=== PATIENT | male | born 1935 | race Caucasian/White ===

== ENCOUNTER 2016-11-10 12:03 | Inpatient (IN) | payer MEDICARE, BC ==
[~2016-11-10] VITALS: Ht 180.3 cm; Wt 86.2 kg
--- NOTE | 2016-11-12 09:16 | CO ---
ADMIT: 11/10/2016 RM/LOC: 423 [facility] MR#: [id number] [address] [address] ADRIANA MCCORMICK [address] [place] [address] Consultation SEX: M AGE: 81 : 1935 DATE OF CONSULTATION: 11/11/2016 ATTENDING PHYSICIAN: Rashid Hameed CONSULTING PHYSICIAN: Alonzo Gage MD REASON FOR CONSULTATION: Anemia. HISTORY OF PRESENT ILLNESS: Adriana is a very pleasant 81-year-old male, who has been admitted to the hospital for an episode of shortness of breath. He first noticed these symptoms approximately 2 months ago but has been getting progressively worse. It has gotten to the point where he cannot take 1 step without feeling short of breath. Because of this, he was then admitted through the Emergency Department and a full workup revealed hemoglobin of 7.7. He has now received 2 blood transfusions. Today, the patient denies any pain, shortness of breath, lightheadedness, weakness, diarrhea, constipation, dark or bloody stools, or nausea or vomiting. His last bowel movement was this morning and apparently was normal according to him. Fecal occult blood testing done in the ER revealed negative test at that time. He does take warfarin; however, he denies taking any other blood thinning medications. PAST MEDICAL HISTORY: Significant for atrial fibrillation and hypertension. PAST SURGICAL HISTORY: 1. Last colonoscopy was performed by Dr. Hameed approximately 5 years ago, he does not recall any pertinent findings from that test. He has not had any prior EGDs. 2. Mitral valve replacement. 3. Knee replacement. ALLERGIES: TO ASPIRIN, PENICILLIN, LEVAQUIN, BIAXIN, ZYLOPRIM, AND SALICYLATES. MEDICATIONS: Well documented in chart. He is on warfarin. FAMILY HISTORY: Noncontributory. SOCIAL HISTORY: The patient denies any alcohol, tobacco, or illicit drug use. REVIEW OF SYSTEMS: CONSTITUTIONAL: The patient denies any fever, chills, or night sweats. The rest of the comprehensive 10-point review of systems was performed and all other systems are negative. PHYSICAL EXAMINATION: GENERAL: The patient is in no acute distress. He is alert and oriented. HEENT: Head is normocephalic and atraumatic. EOMS are intact. Conjunctivae free of icterus, erythema, pallor or pallor. Pinnae free of deformities. Nose, midline. No tracheal deviation. NECK: Supple. ADMIT: 11/10/2016 RM/LOC: 423 [facility] MR#: [id number] [address] [address] ADRIANA MCCORMICK [address] [place] [address] Consultation SEX: M AGE: 81 : 1935 SKIN: Negative for jaundice, clubbing, edema, pallor, cyanosis. LUNGS: Clear to auscultation bilaterally. Normal respiratory effort. HEART: Distal pulses intact. Regular rate and rhythm. No murmurs noted. ABDOMEN: Soft, nondistended, and nontender. NEURO: Grossly intact. LABORATORY DATA: Hemoglobin is 8.9 today. ASSESSMENT: Anemia. PLAN: The plan is to have the patient undergo upper and lower endoscopy performed by Dr. Gage tomorrow. I discussed the risks, alternatives, benefits, and complications of the procedures with the patient and his , who was present during my whole assessment. They are in agreement of this plan, had all their questions answered, and would like to proceed. We will get him prepped today and put on the schedule for tomorrow. We will go from there. Thank for the consultation of this patient. DILCIA Hernández / Alonzo Gage MD / nicole JOB #: [id number] CC: Rashid Hameed, Attending Physician Rashid Hameed, Family Physician
[2016-11-14] MEDS ORDERED: VASOTEC DPS5 MG PO (18:03)
[2016-11-14] MEDS ORDERED: FLECAINIDE ACE150 MG PO (18:03)
[2016-11-14] MEDS ORDERED: ZOCOR DPS20 MG PO (18:03)
[2016-11-14] MEDS ORDERED: COUMADIN5 MG PO (18:04)
[2016-11-14] MEDS ORDERED: MONTELUKAST SOD10 MG PO (18:04)
[2016-11-14] MEDS ORDERED: COUMADIN2.5 MG PO (18:04)
[2016-11-14] MEDS ORDERED: PROTONIX40 MG PO (18:04)
[2016-11-14] MEDS ORDERED: CITRUCEL500 MG PO (18:05)
[2016-11-14] MEDS ORDERED: ZYRTEC DPS10 MG PO (18:05)
[2016-11-14] MEDS ORDERED: ATROVENT NASAL30 ML NS (18:05)
[2016-11-14] MEDS ORDERED: CARVEDILOL25 MG PO (18:05)
[2016-11-14] MEDS ORDERED: NITROSTAT0.4 MG SL (18:06)
[2016-11-14] MEDS ORDERED: SURFAK DPS240 MG PO (18:06)
[2016-11-14] MEDS ORDERED: TYLENOL DPS325 MG PO (18:06)
[2016-11-14] MEDS ORDERED: MAALOX DPS30 ML PO (18:06)
--- NOTE | 2016-11-15 08:16 | ER ---
ADMIT: 11/10/2016 RM/LOC: 423 [facility] MR#: [id number] 2620 [facility] [address] [place] [phone] ADRIANA MCCORMICK [address] [place] [address] Emergency Room Report SEX: M AGE: 81 : 1935 DATE: 11/10/2016 HISTORY OF PRESENT ILLNESS: The patient is a patient of Dr. Hameed. He is in the emergency room with shortness of breath for 7 seven days. He did arrive to the ER. He was very pale, almost had a syncopal episode. His associated symptoms are lightheadedness. He says he gets more short of breath with exertion that he used to. A couple of months ago, he had an increase in his flecainide because he was in AFib. He has been doing well until now. PAST MEDICAL HISTORY: Atrial fibrillation, hypertension, hyperlipidemia. MEDICATIONS: Include: 1. Flecainide. 2. Coreg. 3. Enalapril. 4. Ipratropium. 5. Zyrtec. 6. Singulair. 7. Coumadin. 8. Simvastatin. PHYSICAL EXAMINATION: VITAL SIGNS: Blood pressure 106/71, 99% O2 sats, 79 pulse, respirations 18, temp 95.4. GENERAL: Well-nourished and well-developed male, alert, oriented, very, very pale, very pleasant. HEENT: Normal inspection. NECK: Supple. RESPIRATIONS: No distress. CVS: Regular in rate and rhythm. ABDOMEN: Obese, nontender. SKIN: Pale. EXTREMITIES: Non-edematous. NEUROLOGIC: Oriented x4. Mood and affect are appropriate. LABORATORY AND X-RAY DATA: His workup includes CBC with a normal white count of 8.4, hemoglobin 7.7, hematocrit is 25. Hemoccult was negative. The creatinine was 2.0 with a glucose of 104, BUN is 29, calcium 7.9, CRP 0.46 with Rh O positive. INR 1.96 and subtherapeutic. PT 20.8. BNP still pending. EKG, junctional rhythm with left bundle-branch block at 53 beats per minute. His x-ray shows cardiac size within normal limits. CHF is identified. Mild linear bibasilar atelectasis. Dr. Hameed was contacted at 1550 hours. He has given orders for admission. ADMIT: 11/10/2016 RM/LOC: 423 [facility] MR#: [id number] [address] [address] ADRIANA MCCORMICK [address] [place] [address] Emergency Room Report SEX: M AGE: 81 : 1935 He is going to include D-dimer and chest CT. CLINICAL IMPRESSION: 1. Subtherapeutic anticoagulation. 2. Congestive heart failure. 3. Near syncopal episode. 4. Anemia. 5. Chronic atrial fibrillation. The patient awaiting room placement. He was given a bag of fluids and he did extremely well, getting his blood pressure back and his color back before we discovered that he showed CHF in chest x-ray. DILCIA Masters / Tera Diaz MD / trumanl JOB #: [id number] CC: Rashid Hameed DO, Attending Physician Rashid Hameed DO, Family Physician
--- NOTE | 2016-11-17 08:28 | HP ---
ADMIT: 11/10/2016 RM/LOC: 423 [facility] MR#: [id number] [address] [facility] [address] [place] [phone] ADRIANA MCCORMICK [address] [place] [address] History and Physical SEX: M AGE: 81 : 1935 DATE OF SERVICE: 11/10/2016 REASON FOR HOSPITALIZATION: Dyspnea. HISTORY: An 81-year-old male patient with a history of mitral valve prosthesis 10 years ago this coming April. He has been chronically anticoagulated, has a history of paroxysmal atrial fibrillation. He presented today to the emergency room with reports of progressive shortness of breath with minimal exertion, in general fatigue and malaise. In the emergency room, he was felt to be in mild heart failure by way of chest x-ray with finding of a hemoglobin of 7.7. No previous history of significant anemia to my knowledge. He had CT evaluation performed without contrast because of elevated creatinine, but this did not suggest early cardiac decompensation. He is now admitted for further management and evaluation. Again, his history is outlined above. PAST MEDICAL HISTORY: He has a history of knee replacement, hypertension, prior sinus surgery, mitral regurgitation with replacement valve. ALLERGIES: HE HAS ALLERGIES TO PENICILLIN, ASPIRIN, LEVAQUIN, BIAXIN, ZYLOPRIM, AND SALICYLATES. MEDICATIONS: His meds are being compiled and not available for dictation and review at this time. I will be reviewing those shortly. SOCIAL HISTORY: He does not smoke. He is . He remains active in the community. FAMILY HISTORY: Noncontributory. REVIEW OF SYSTEMS: Dyspnea with minimal exertion, in general fatigue and malaise but no obvious bleeding, either rectal or otherwise. He denies any gastrointestinal symptoms. PHYSICAL EXAMINATION: GENERAL: He is pleasant, but pale in general appearance. He is alert and oriented. HEART: Regular. His EKG was read as junctional with heart rate of 53. LUNGS: Distant, but clear. ABDOMEN: Soft. EXTREMITIES: He has no peripheral edema. LABORATORY DATA: His INR is 1.96. His creatinine is 2.0. He has a proBNP of ADMIT: 11/10/2016 RM/LOC: 423 [facility] MR#: [id number] [address] [address] MCCORMICK, ADRIANA G [address] [place] [address] History and Physical SEX: M AGE: 81 : 1935 2046. His hemoglobin is 7.7 with platelet count of 190,000. Again, his chest CT scan without contrast shows borderline cardiomegaly with mild pulmonary vascular congestion, very small right-sided pleural effusion, and mild areas of atelectasis. IMPRESSION: 1. Anemia. 2. Early congestive heart failure. 3. Paroxysmal atrial fibrillation, on chronic anticoagulation therapy. PLAN: Admit to telemetry. Packed red blood cell transfusion. Cardiology evaluation and assistance with management of his cardiac cares. Rashid Hameed DO/ nicole JOB #: [id number] CC: Rashid Hameed, Attending Physician Rashid Hameed, Family Physician
--- NOTE | 2016-11-21 15:09 | CO ---
ADMIT: 11/10/2016 RM/LOC: 423 [facility] MR#: [id number] [address] [address] ADRIANA MCCORMICK [address] [place] [address] Consultation SEX: M AGE: 81 : 1935 DATE OF CONSULTATION: 11/11/2016 ATTENDING PHYSICIAN: Rashid Hameed CONSULTING PHYSICIAN: Dany Nair MD REASON FOR CONSULT: Shortness of breath. Lluvia Corrales RN scribing for Dany Nair MD HISTORY OF PRESENT ILLNESS: Adriana is a pleasant, 81-year-old gentleman, I have been asked to see in Cardiology consultation by Dr. Hameed for shortness of breath. Adriana follows regularly with [facility]. He sees Dr. Michael Espino at [facility], he was last seen on October 29 by Yissel Juarez. He has history of paroxysmal atrial fibrillation as well as mitral valve regurgitation status post mitral valve repair in 2006. Last echocardiogram was performed November 04, 2016, showing ejection fraction of 45% with moderate MR at that time. He is status post left atrial appendage ligation. He is on chronic anticoagulation with Coumadin. He has history of hypertension, hyperlipidemia, but no history of tobacco use. Cardiac catheterization performed in 2006 showed normal coronary arteries. 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 He is on flecainide for antiarrhythmic and carvedilol as well. Ejection fraction has been stable at 45%. Adriana presented to [facility] yesterday with complaints of severe shortness of breath. He stated that over the last few days, he had increased shortness of breath, but it got to the point where minimal exertion such as walking in his home or getting dressed, he would be severely short of breath and had decreased activity tolerance. He denied any chest discomfort with those episodes. He did call [facility] office requesting a same-day appointment, but given the severity of his symptoms, it was determined appropriate that he would come and be evaluated in the emergency room. He was admitted with a hemoglobin of 7.7 and elevated creatinine of 2.0. He denies any orthopnea or changes in his weight. He denies any peripheral edema. He does have some tightness in his abdomen with increased shortness of breath. Yesterday he received 2 units of packed red blood cells with Lasix in between each unit. His weight has been stable. His hemoglobin increased from 7.7 to 8.9. He does feel that his symptoms have improved. He has blood loss of unknown etiology at this time. Adriana has maintained sinus rhythm. INR is 1.96. Cardiac enzyme with troponin is negative. PAST MEDICAL HISTORY: History of severe mitral regurgitation status post repair in 2006, ejection fraction of 45%; paroxysmal atrial fib status post left atrial appendage ligation; hypertension; hyperlipidemia; PACs; osteoarthritis; asthma; BPH; chronic otitis; chronic kidney disease; diverticulosis; dyspepsia; gastroesophageal reflux disease; gout; chronic ADMIT: 11/10/2016 RM/LOC: 423 [facility] MR#: [id number] [address] [place] [phone] ADRIANA MCCORMICK [address] [place] [address] Consultation SEX: M AGE: 81 : 1935 heartburn; kidney cyst; nasal polyps. PAST SURGICAL HISTORY: Includes mitral valve repair, nasal septoplasty, tonsillectomy, inguinal hernia repair on the right, hemorrhoidectomy, bilateral thoracostomy, laparotomy, bilateral knee replacements. ALLERGIES: AMIODARONE CAUSED LIVER AND RENAL IMPAIRMENT. SALICYLATE CAUSE RASH. PENICILLIN, RASH. LEVOFLOXACIN, MUSCULAR PAIN. ASPIRIN, RASH. BIAXIN RASH. MEDICATIONS: Current medications include: 1. Coreg 25 p.o. b.i.d. 2. Coumadin 5 on Thursday, Thursday, Thursday, , and Thursday and 12.5 on Thursday. 3. Metamucil 3.4 p.o. b.i.d. 4. Protonix 40 daily. 5. Singulair 10 at bedtime. 6. Tambocor 150 p.o. b.i.d. 7. Vasotec 5 p.o. b.i.d. 8. Zocor 20 at bedtime. 9. Zyrtec 10 daily. 10.Atrovent 2 sprays nasally b.i.d. FAMILY HISTORY: Positive family history of coronary disease in brother, father. Positive family history of diabetes and cancer. SOCIAL HISTORY: Adriana is . He lives at home with his . He denies any tobacco history. He denies any alcohol, drug use, or excessive caffeine use. He denies any special diet at home. REVIEW OF SYSTEMS: GENERAL: Reports increased fatigue over the last week, severely over the last 2 days. Denies recent fever, chills, or sweats. No significant weight change that he is aware of. EYES: Denies any visual changes, double vision, or blurry vision. THROAT, MOUTH and EARS: Has a history of sinus allergy issues. Denies any sore throat or hearing loss. RESPIRATORY : No history of COPD, hemoptysis, or obstructive sleep apnea. GASTROINTESTINAL: History of acid reflux, diverticulosis. Hematest have been negative x1. No gallbladder or liver issues that he is aware of. GENITOURINARY: Denies any hematuria, urinary tract infections, or kidney stones. His creatinine is elevated with acute on chronic kidney disease. MUSCULOSKELETAL: History of osteoarthritis. History of muscle and joint pains, none currently. ENDOCRINE: Denies any thyroid or diabetes issues. HEMATOLOGY: He was admitted with anemia with hemoglobin 7.7 with packed red blood cell has improved to 8.9. Continue to monitor. Denies any cancer. NEUROLOGIC: Denies any stroke, seizure disorder, or headaches. PSYCHIATRIC: Denies history of mental illness or feelings of depression. ADMIT: 11/10/2016 RM/LOC: 423 [facility] MR#: [id number] 2620 [facility] [address] [place] [phone] ADRIANA MCCORMICK [address] [place] [address] Consultation SEX: M AGE: 81 : 1935 PHYSICAL EXAMINATION: VITAL SIGNS: Blood pressure 136/85, heart rate 62, respirations 20, temperature 99.4, oxygenation 93% on room. SKIN: [place], warm and dry. EYES: Sclerae clear. No xanthelasmas. ENT: Oral mucosa is pink and moist. No jugular venous distention or carotid bruits. CHEST: Respirations are even and unlabored. Lungs are clear to auscultation. HEART: Regular rate and rhythm. 2/6 holosystolic murmur on left sternal border. No rubs or gallops. ABDOMEN: Soft and nontender. MUSCULOSKELETAL: Gait is normal. EXTREMITIES: Peripheral pulses palpable. No clubbing, cyanosis. Trace edema bilaterally. PSYCHIATRIC: Alert and oriented. Mood and affect are appropriate. DIAGNOSTIC DATA: Sodium 140, potassium 3.7, BUN 27, creatinine 1.9, glucose 122. Troponin less than 0.015. ProBNP 3054, CRP 0.46, INR 1.96, D-dimer 0.37. White blood cell count 8.5, hemoglobin 8.9, hematocrit 29.5, and platelets 193. ASSESSMENT/PLAN: 1. Dyspnea, multifactorial with anemia and likely mild heart failure. I agree with blood transfusion and IV Lasix. I will repeat IV Lasix 40 mg IV x1 today. 2. Paroxysmal atrial fibrillation. He is on flecainide and Coumadin. I will watch rhythm on telemetry for rate control as well. 3. Status post mitral valve repair with moderate mitral regurgitation on most recent echocardiogram. As he has continued with heart failure, he may need to have CRISPIN considered to further evaluate his mitral regurgitation closely. 4. Hypertension. 5. Acute on chronic renal failure. I will recheck lab work in a.m. and follow him closely. Thank you for the consultation. "I have read and agree with the documentation that has been completed regarding this visit. By signing this record, I attest that the documentation was completed in my physical presence and is an accurate record of the encounter." Lluvia Corrales RN / Dany Nair MD / modl JOB #: [id number] CC: Rashid Hameed, Attending Physician ADMIT: 11/10/2016 RM/LOC: 423 [facility] MR#: [id number] [facility] [address] [address] ADRIANA MCCORMICK [address] [place] [address] Consultation SEX: M AGE: 81 : 1935 Rashid Hameed, Family Physician
--- NOTE | 2016-11-24 08:53 | OR ---
ADMIT: 11/10/2016 RM/LOC: 423 [facility] MR#: [id number] [address] [address] ADRIANA MCCORMICK [address] [place] [address] Operative/Delivery Room Report SEX: M AGE: 81 : 1935 SURGERY DATE: 11/12/2016 SURGEON: Omer Gage MD PREPROCEDURE DIAGNOSIS: Anemia. POSTPROCEDURE DIAGNOSES: 1. Multiple and many diffuse gastric body and fundic benign polyps. 2. Questionable mild right-sided colitis. PROCEDURES: 1. EGD (Esophagogastroduodenoscopy). 2. Colonoscopy with right colon biopsies. INDICATIONS: The patient is an 81-year-old with anemia of unknown origin, who presents for upper and lower endoscopy. DESCRIPTION OF PROCEDURE: The patient was taken to the endoscopy suite. IV sedation was given. He was placed in left lateral decubitus position. A bite- block was placed in the patient's mouth. The gastroscope was introduced down the oropharynx, down the esophagus, into the stomach, through the pylorus to the duodenum. The duodenal bulb, second and third portions of the duodenum appeared normal with no inflammation. No ulcers. No pathology. Within the stomach, there were diffuse large amount of benign appearing frondy edematous gastric polyps, several of which were mildly irritated. Biopsies had been taken of these previously by Dr. Hameed. There was no old or new blood. There were no gastric lesions, ulcers, or masses. There was no hiatal hernia. There was a normal squamocolumnar junction. Remainder of the esophagus was normal. The gastroscope was removed. Next, the colonoscope was introduced to the rectum and advanced to the cecum. On careful colonoscopic examination with a good bowel prep, there was mild changes of right-sided colitis, multiple right colon biopsies were taken at this time. There were no further masses or polyps. There was noted to be [id number] focal sigmoid diverticular disease. The rectal mucosa was normal. There was no evidence of old or new blood. The colonoscope was removed. The patient tolerated the procedure without difficulty, transferred to the recovery room in good condition. Omer Gage MD/ nicole JOB #: [id number] CC: Rashid Hameed DO, Attending Physician Rashid Hameed DO, Family Physician
--- NOTE | 2016-11-24 08:53 | CO ---
ADMIT: 11/10/2016 RM/LOC: 423 [facility] MR#: [id number] [address] [address] ADRIANA MCCORMICK [address] [place] [address] Consultation Report SEX: M AGE: 81 : 1935 DATE OF CONSULTATION: 11/11/2016 ATTENDING PHYSICIAN: Rashid Hameed CONSULTING PHYSICIAN: Omer Gage MD HISTORY OF PRESENT ILLNESS: The patient is a very pleasant, 81-year-old male, who was admitted to the hospital with issues of shortness of breath. It has been getting progressively worse for him. On admission, he was noted have a hemoglobin of 7.7, receiving red blood cell transfusion. He has not noticed any problems with abdominal pain, diarrhea, or constipation. Denies any abdominal pain. Denies melena or hematochezia. Fecal occult blood test done, which was negative, does take Coumadin for chronic anticoagulation as he has had a mitral valve replacement in the past. He has had previous upper and lower endoscopy done by Dr. Hameed in 2009. We have been asked to see if a repeat scope due to severe anemias. Past medical history, surgical history, allergies, medications, family history, and social history outlined in the chart. REVIEW OF SYSTEMS: He has had weakness and shortness of breath with activity. No abdominal discomfort. No hematemesis. No melena or hematochezia. PHYSICAL EXAMINATION: VITAL SIGNS: He is afebrile. Vitals stable. HEART: Regular. LUNGS: Clear. ABDOMEN: Soft, nondistended, nontender. No peripheral edema. ASSESSMENT AND PLAN: The patient is an 81-year-old with anemia of unknown origin with no clinical evidence of gastrointestinal blood loss. Our plan is for upper and lower endoscopy for continued workup. Oemr Gage MD/ nicole JOB #: [id number] CC: Rashid Hameed, Attending Physician Rashid Hameed, Family Physician
--- NOTE | 2016-12-24 08:20 | DS ---
ADMIT: 11/10/2016 RM/LOC: 423 [facility] MR#: [id number] 2620 [facility] [address] [place] [phone] ADRIANA MCCORMICK [address] [place] [address] Discharge Summary SEX: M AGE: 81 : 1935 ADMISSION DATE: 11/10/2016 DISCHARGE DATE: 11/13/2016 REASON FOR HOSPITALIZATION: Shortness of breath. HISTORY OF PRESENT ILLNESS: This is an 81-year-old male patient with a history of mitral valve prosthesis 10 years ago, who presented with shortness of breath. He has a history of paroxysmal atrial fibrillation. He is chronically anticoagulated and in the Emergency Department, he was found to have a hemoglobin of 7.7. HOSPITAL COURSE: He was admitted to the hospital, given packed red blood cell transfusion, underwent metabolic evaluation. IV Lasix and Cardiology was consulted to assist with his management. I started him on IV Lasix. We asked Surgery to consult for endoscopic evaluation of his anemia. They made arrangements for upper and lower endoscopy. We monitored his CKD with lab evaluation. On endoscopy, he was found to have many benign gastric body fundic polyps, mild right-sided colitis and biopsies were obtained. He on 11/13, was felt to be stable. We asked for him to follow up with business instructor and the surgeon as an outpatient. We dismissed him with diagnosis of anemia, colitis, gastritis, fundic gland polyps, atrial fibrillation, history of mitral valve repair, hypertension, chronic kidney disease. For specifics of his medication dismissal plans, please refer to his dismissal orders. Rashid Hameed DO/ nicole JOB #: [id number] CC: Rashid Hameed DO, Attending Physician Rashid Hameed DO, Family Physician
== END 2016-11-13 13:42 | disposition home or self-care (01) | DRG 392 ==
LOC: ER 12:03 → 4PCU 15:50
PROVIDERS: ADMIT Internal Medicine
DX: K29.70 Gastritis, unspecified, without bleeding (principal); N17.9 Acute kidney failure, unspecified; I48.0 Paroxysmal atrial fibrillation; I13.0 Hypertensive heart and chronic kidney disease with heart failure and stage 1 through stage 4 chronic kidney disease, or unspecified chronic kidney disease; I50.9 Heart failure, unspecified; K52.9 Noninfective gastroenteritis and colitis, unspecified; D64.9 Anemia, unspecified; N28.1 Cyst of kidney, acquired; E87.6 Hypokalemia; N18.3 Chronic kidney disease, stage 3 (moderate); M19.90 Unspecified osteoarthritis, unspecified site; K31.7 Polyp of stomach and duodenum; J45.909 Unspecified asthma, uncomplicated; N40.0 Benign prostatic hyperplasia without lower urinary tract symptoms; K57.90 Diverticulosis of intestine, part unspecified, without perforation or abscess without bleeding; M10.9 Gout, unspecified; K21.9 Gastro-esophageal reflux disease without esophagitis; E78.5 Hyperlipidemia, unspecified; I44.7 Left bundle-branch block, unspecified; R79.1 Abnormal coagulation profile; Z79.01 Long term (current) use of anticoagulants; Z95.2 Presence of prosthetic heart valve; Z96.653 Presence of artificial knee joint, bilateral; Z82.49 Family history of ischemic heart disease and other diseases of the circulatory system